=== PATIENT | female | born 1995 | race Caucasian/White ===

== ENCOUNTER 2017-05-27 21:41 | Emergency (ER) | payer MEDICAID ==
[~2017-05-27] VITALS: Ht 160 cm; Wt 102.5 kg
[2017-05-27 21:51] VITALS: Ht 160 cm; Wt 102.5 kg
[2017-05-27 23:18] VITALS: BP 131/80
== END 2017-05-27 23:18 | disposition home or self-care (01) ==
LOC: ED 21:41
DX: R10.30 Lower abdominal pain, unspecified (principal)